=== PATIENT | male | born 1995 | race Caucasian/White ===

== ENCOUNTER → 2016-07-07 | Outpatient (CLI) | payer OTHER ==
[~2016-07-07] MED LIST: CHOL2000 PO; FERR1TAB23 PO; IBUP-103 PO; MULT-513 PO
--- NOTE | 2016-07-07 12:37 | DIAGNOSTIC IMAGING REPORT ---
LEFT TIBIA/FIBULA 4 VIEWS HISTORY: PAIN IN LEFT DANIELS COMPARISON: None. FINDINGS: There is no fracture or dislocation. Soft tissues are unremarkable. No radiopaque foreign bodies. Mild cortical thickening along the medial aspect of the mid to distal tibial shaft. IMPRESSION: No fractures. Mild cortical thickening within the medial aspect of the mid to distal tibial shaft which could be due to long-standing change or mild stress related changes. Electronically signed by: Jani Herrera M.D. 07/07/2016 12:35 PM Dictated Date/Time: 07/07/2016 12:31 PM
== END | disposition home or self-care (01) ==
LOC: C.RDSM 11:33
PROVIDERS: ATTEND Internal Medicine
DX: M79.662 Pain in left lower leg (principal)

== ENCOUNTER → 2016-07-14 | Outpatient (CLI) | payer OTHER ==
--- NOTE | 2016-07-14 11:31 | DIAGNOSTIC IMAGING REPORT ---
LEFT TIBIA/FIBULA 2 VIEWS CLINICAL HISTORY: Pain on Left lateral distal tib/fib, no trauma pain COMPARISON: 07/07/2016 DISCUSSION: Subtle cortical thickening medial distal left tibia unchanged. No new or interval findings. No lytic or blastic process. There is no evidence for soft tissue swelling. IMPRESSION: No change from the prior exam. Several nonspecific cortical thickening medial distal tibial shaft. If symptomatology persists, bone scanning would be suggested Electronically signed by: Azael West M.D. 07/14/2016 11:29 AM Dictated Date/Time: 07/14/2016 11:28 AM
== END | disposition home or self-care (01) ==
LOC: C.RDSM 11:10
PROVIDERS: ATTEND Internal Medicine
DX: M79.605 Pain in left leg (principal)

== ENCOUNTER → 2016-07-24 | Outpatient (CLI) | payer OTHER ==
--- NOTE | 2016-07-24 13:36 | DIAGNOSTIC IMAGING REPORT ---
LEFT TIBIA AND FIBULA 4 VIEWS CLINICAL HISTORY: Left leg pain. FINDINGS: AP, lateral, and bilateral oblique views of the left tibia and fibula are compared to study dated 07/14/2016. The skeletal structures are well mineralized. No fracture is seen. No periostitis is identified. Questionable mild cortical thickening of the distal tibial shaft is again suggested. The knee and ankle joints appear preserved. The overlying soft tissues are within normal limits. IMPRESSION: 1. No acute bony abnormality is identified. 2. Questionable mild cortical thickening of the distal tibial shaft is unchanged. This may be physiologic. If there is clinical concern for occult stress fracture then MRI or nuclear bone scan would be appropriate. Electronically signed by: Yonatan Garza M.D. 07/24/2016 1:35 PM Dictated Date/Time: 07/24/2016 1:29 PM
== END | disposition home or self-care (01) ==
LOC: C.RDSM 14:01
PROVIDERS: ATTEND Internal Medicine
DX: M79.605 Pain in left leg (principal)

== ENCOUNTER 2016-11-25 20:27 | Emergency (ER) | payer OTHER ==
[~2016-11-25] VITALS: Ht 170.2 cm; Wt 59.4 kg
[2016-11-25 20:41] VITALS: TEMP 36.7; Ht 170.2 cm; Wt 59.4 kg
[2016-11-25] MEDS ORDERED: SODIUM CHLORIDE 0.9% 1000ML 1,000 ML IV ONE (21:03)
[2016-11-25] MEDS ORDERED: SODIUM CHLORIDE 0.9% 1000ML 1,000 ML IV STA (21:03)
[2016-11-25] MEDS ORDERED: FERR1TAB23 PO (21:39)
[2016-11-25] MEDS ORDERED: MULT-513 PO (21:39)
[2016-11-25] MEDS ORDERED: CHOL2000 PO (21:39)
[2016-11-25] MEDS ORDERED: IBUP-103 PO (21:39)
[2016-11-25 21:40] LABS: BASO % 0.2 %; BASO ABS # 0.02 K/uL (0-0.2); COMPLETE YES; EOS % 0.1 %; IG% 0.3 %; LYMPH % 16.5 %; MEAN CELL VOLUME 79.9 fL (80-100); MEAN CORPUSCULAR HGB CONC 33.7 g/dl (32-36); MEAN PLATELET VOLUME 9.3 fL (7.4-10.4); MONO % 7.5 %; NEUT % 75.4 %; PLATELET COUNT 298 K/uL (130-400); RED BLOOD COUNT 5.38 M/uL (4.7-6.1)
[2016-11-25 21:59] LABS: ALT/SGPT 45 U/L (12-78); BLOOD UREA NITROGEN 20 mg/dl (7-18); BUN/CREATININE RATIO 20.3 (10-20); CALCIUM 9.6 mg/dl (8.5-10.1); CARBON DIOXIDE 26 mmol/L (21-32); CHLORIDE 105 mmol/L (98-107); GLUCOSE 109 mg/dl (70-99); POTASSIUM 3.6 mmol/L (3.5-5.1); SODIUM 140 mmol/L (136-145)
[2016-11-25 22:01] LABS: ALKALINE PHOSPHATASE 83 U/L (45-117); AST/SGOT 36 U/L (15-37)
[2016-11-26 00:15] VITALS: BP 118/72; PULSE 78; O2SAT 98
--- NOTE | 2016-11-26 01:52 | EMERGENCY ROOM VISIT NOTE ---
History Report prepared by Beltran: Blanca Pastor Under the Supervision of: Dr. Harrison Berumen M.D. First contact with patient: 20:53 Chief Complaint: RECTAL BLEEDING Stated Complaint: BLOODY STOOL Nursing Triage Summary: see note History of Present Illness The patient is a 20 year old male who presents to the Emergency Room with complaints of an episode of rectal bleeding starting four hours ago. 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 He states that he went to the bathroom and there is blood in the stool and that his stool was diarrhea. He reports that he has gone 6 times and each time has had the blood. He states that he came to the ED because his crew trainer told him to call his doctor who told him to come in. The patient complains of nausea, pain when he wipes, and abdominal pain. The patient denies cramping, trauma, fevers, chills, vomiting, chest pain, shortness of breath, and being around someone who is sick. He notes that he was on antibiotics for five days a week ago. He states he just finished them 3 days ago. The patient notes he traveled to [place] 4 weeks ago. Source of History: patient Onset: four hours ago Position: other (global) Quality: other (global) Timing: other (episode) Associated Symptoms: + nausea, + abdominal pain, No fevers, No chills, No chest pain, No SOB, No vomiting Note: The patient complains of pain when he wipes. The patient denies cramping, trauma , and being around someone who is sick. Review of Systems See HPI for pertinent positives & negatives. A total of 10 systems reviewed and were otherwise negative. Past Medical & Surgical Medical Problems: (1) No Known Active Medical Problems Old medical records were reviewed. Nurse's notes were reviewed and I agree with. Family History Patient reports no known family medical history. Social History Smoking Status: Never Smoker Drug Use: none Marital Status: single Housing Status: lives with roommate Occupation Status: [employer] Current/Historical Medications Scheduled Cholecalciferol (Vitamin D3), 1 TAB PO DAILY Multivitamins/Minerals (Mvi With Minerals), 1 TAB PO DAILY Scheduled PRN Ferrous Sulfate (Iron), 1 TAB PO DAILY PRN for RN Ibuprofen Tab (Advil), 400 MG PO DAILY PRN for Pain Allergies Coded Allergies: Clindamycin (Verified Allergy, Unknown, RASH, 11/25/16) Uncoded Allergies: KELFEX (Allergy, Unknown, HIVES, 11/25/16) PENICILLIN (Allergy, Unknown, ANAPHYLAXIS, 11/25/16) Physical Exam Vital Signs Date Time Temp Pulse Resp B/P (MAP) Pulse Ox O2 Delivery O2 Flow Rate FiO2 11/26/16 00:15 78 20 118/72 98 11/25/16 23:01 78 20 103/65 98 Room Air 11/25/16 20:41 36.7 82 16 132/68 100 Room Air Physical Exam General: Well developed well nourished in no acute distress, breathing comfortably on room air. Normal speech. Non-ill appearing young male. HEENT: Normal cephalic atraumatic. Pupils are equal round and reactive to light. Extraocular movements are intact. Oropharynx is pink with moist mucous membranes. No swelling of the mouth lips or tongue. Neck: Supple with a midline trachea. No meningeal signs or stiffness, no JVD or bruits. No Stridor. Chest: Clear to auscultation bilaterally. No wheezes or rhonchi. No increased work of breathing. Heart: regular rate and rhythm. Abdomen: Soft nontender, nondistended without rebound guarding or rigidity. Rectal: Normal external rectal exam. No mass, tear, or hemorrhoid seen. Internal no mass felt. Brown stool. Guiac positive. Extremities: No cyanosis clubbing or edema. No calf tenderness or assymetry Spine/Back. Non tender to palpation. No CVA tenderness Skin: Good turgor without rashes. Neurologic exam: Cranial nerves two through 12 are intact. Motor and sensation are intact and symmetrical throughout. Medical Decision & Procedures Laboratory Results 11/25/16 21:15 Red Blood Count 5.38, Mean Corpuscular Volume 79.9, Mean Corpuscular Hemoglobin 27.0, Mean Corpuscular Hemoglobin Concent 33.7, Mean Platelet Volume 9.3, Neutrophils (%) (Auto) 75.4, Lymphocytes (%) (Auto) 16.5, Monocytes (%) (Auto) 7.5, Eosinophils (%) (Auto) 0.1, Basophils (%) (Auto) 0.2, Neutrophils # (Auto) 9.12, Lymphocytes # (Auto) 2.00, Monocytes # (Auto) 0.91, Eosinophils # (Auto) 0.01, Basophils # (Auto) 0.02 11/25/16 21:15 Test 11/25/16 21:15 White Blood Count 12.10 K/uL (4.8-10.8) Red Blood Count 5.38 M/uL (4.7-6.1) Hemoglobin 14.5 g/dL (14.0-18.0) Hematocrit 43.0 % (42-52) Mean Corpuscular Volume 79.9 fL (80-100) Mean Corpuscular Hemoglobin 27.0 pg (25-34) Mean Corpuscular Hemoglobin Concent 33.7 g/dl (32-36) Platelet Count 298 K/uL (130-400) Mean Platelet Volume 9.3 fL (7.4-10.4) Neutrophils (%) (Auto) 75.4 % Lymphocytes (%) (Auto) 16.5 % Monocytes (%) (Auto) 7.5 % Eosinophils (%) (Auto) 0.1 % Basophils (%) (Auto) 0.2 % Neutrophils # (Auto) 9.12 K/uL (1.4-6.5) Lymphocytes # (Auto) 2.00 K/uL (1.2-3.4) Monocytes # (Auto) 0.91 K/uL (0.11-0.59) Eosinophils # (Auto) 0.01 K/uL (0-0.5) Basophils # (Auto) 0.02 K/uL (0-0.2) RDW Standard Deviation 37.4 fL (36.4-46.3) RDW Coefficient of Variation 13.0 % (11.5-14.5) Immature Granulocyte % (Auto) 0.3 % Immature Granulocyte # (Auto) 0.04 K/uL (0.00-0.02) Anion Gap 9.0 mmol/L (3-11) Est Creatinine Clear Calc Drug Dose 99.8 ml/min Estimated GFR () 125.9 Estimated GFR (Non- 108.6 BUN/Creatinine Ratio 20.3 (10-20) Calcium Level 9.6 mg/dl (8.5-10.1) Total Bilirubin 0.3 mg/dl (0.2-1) Direct Bilirubin < 0.1 mg/dl (0-0.2) Aspartate Amino Transf (AST/SGOT) 36 U/L (15-37) Alanine Aminotransferase (ALT/SGPT) 45 U/L (12-78) Alkaline Phosphatase 83 U/L (45-117) Total Protein 7.9 gm/dl (6.4-8.2) Albumin 4.3 gm/dl (3.4-5.0) Lipase 117 U/L (73-393) Laboratory studies as stated above per my review. Medications Administered Medications (Trade) Dose Ordered Sig/Travis Route Start Time Stop Time Status Last Admin Dose Admin Sodium Chloride 1,000 ml @ 999 mls/hr Q1H1M STAT IV 11/25/16 21:03 11/25/16 22:03 DC 11/25/16 21:24 999 MLS/HR Sodium Chloride 1,000 ml @ 200 mls/hr Q5H ONCE IV 11/25/16 21:03 11/26/16 01:47 DC 11/25/16 22:10 200 MLS/HR ED Course 2054: Past medical records reviewed. The patient was evaluated in room C9, and a complete history and physical examination were performed. 2102: Ordered NSS 1000 ml @ 200 mls/hr IV, NSS 1000 ml @ 999 mls/hr IV. 0013: Upon reevaluation, the patient is resting comfortably. I discussed the results and treatment plan with him. He verbalized agreement of the treatment plan. The patient was discharged home. Medical Decision Differential diagnoses include rectal bleeding, colitis, hemorrhoid, anal fissure, C-Diff, infection. This patient comes in as described above he had several episodes this evening of bright red blood per rectum. He's had no fall or trauma he's had no recent illness or sick contacts on exam he is well-appearing his abdomen is benign fevers stable vital signs IV access established and blood work was obtained white count is just minimally elevated at 12 he's not significantly anemic he is no acute electrode or metabolic abnormalities. C. difficile was negative. He did did recently finish antibiotics. Further stool studies including cultures are pending. On rectal exam, there is no hemorrhoid or abscess or anal fissure. He did have blood when he wiped. It may be that there is a small fissure there. Additionally, this could be more of an infectious diarrhea -type picture. He has been asymptomatic since he's been here. I'll have him rest and drink plenty of fluids use warm compresses and stool softeners as needed if he is constipated. Return if increasing pain or bleeding, fever or chills, worsening of symptoms, any new problems and follow-up with the student [facility] clinic this week for recheck. He is happy the plan and discharged to home. Impression Primary Impression: Rectal bleed Scribe Attestation The scribe's documentation has been prepared under my direction and personally reviewed by me in its entirety. I confirm that the note above accurately reflects all work, treatment, procedures, and medical decision making performed by me. Departure Information Dispostion Home / Self-Care Referrals No Doctor, Assigned (PCP) Forms HOME CARE DOCUMENTATION FORM, IMPORTANT VISIT INFORMATION, WORK / SCHOOL INSTRUCTIONS Patient Instructions [facility] Additional Instructions Rest. Drink plenty of fluids. Use warm compresses as needed May use stool softeners if needed if stool is hard Return if: Increasing pain or bleeding, worsening symptoms, fever chills, any new problems or concerns. Follow-up with your doctor/the student health clinic this week for recheck
== END 2016-11-26 00:16 | disposition home or self-care (01) ==
LOC: C.EDB 20:28 → C.EDC 11-26 00:16
DX: K62.5 Hemorrhage of anus and rectum (principal); D64.9 Anemia, unspecified